=== PATIENT | male | born 1965 ===

== ENCOUNTER 2019-05-20 00:08 | Observation (INO) | payer MEDICARE ==
[2019-05-20 01:08] LABS: Basophils % (Auto) 0.3 % (0.0-1.8); Eosinophils # (Auto) 0.1 K/mm3 (0.0-0.4); Eosinophils % (Auto) 0.6 % (0.0-4.3); Hematocrit 38.1 % (35.5-45.6); Hemoglobin 12.6 gm/dl (11.8-15.2); Lymphocytes # (Auto) 1.3 K/mm3 (1.2-5.4); Lymphocytes % (Auto) 11.5 % (13.4-35.0); Mean Corpuscular HGB Conc 33 % (32-34); Mean Corpuscular Volume 93 fl (84-94); Monocytes # (Auto) 1.3 K/mm3 (0.0-0.8); Monocytes % (Auto) 12.2 % (0.0-7.3); Platelet Count 293 K/mm3 (140-440); Red Cell Distribution Width 14.1 % (13.2-15.2)
--- NOTE | 2019-05-20 01:22 | XRay Report ---
CHEST 1 VIEW INDICATION / CLINICAL INFORMATION: Altered mental status. COMPARISON: None available. FINDINGS: SUPPORT DEVICES: None. HEART / MEDIASTINUM: No significant abnormality. LUNGS / PLEURA: No significant pulmonary or pleural abnormality. No pneumothorax. ADDITIONAL FINDINGS: No significant additional findings. IMPRESSION: 1. No significant change Signer Name: Marcus Riggs MD Signed: 05/20/2019 1:18 AM Workstation Name: [facility] [id number]
[2019-05-20 01:35] LABS: INR 1.02 (0.87-1.13)
[2019-05-20 01:36] LABS: Partial Thromboplastin Time 37.4 Sec. (24.2-36.6)
[2019-05-20 01:48] LABS: Alanine Aminotransferase 21 units/L (7-56); Albumin 3.7 g/dL (3.9-5); BUN/Creatinine Ratio 22; Blood Urea Nitrogen 26 mg/dL (9-20); Calcium 8.5 mg/dL (8.4-10.2); Hemolysis Index 0
[2019-05-20 02:03] LABS: ABG Base Excess 3.7 mmol/L (-2.0-3.0); ABG Methemoglobin 0.7 % (0.0-1.5); ABG Oxygen Saturation 96.9 % (95.0-99.0); ABG PCO2 46.7 mm Hg; ABG PH 7.412 pH Units (7.350-7.450); ABG PO2 88.1 mm Hg (80.0-90.0)
--- NOTE | 2019-05-20 02:35 | Emergency Department Report ---
HPI <EUNICE LOPEZ - Last Filed: 05/20/19 03:35> - HPI HPI: 54-year-old male presents to the emergency department via EMS from his [facility] with multiple complaints. He complains of having a 1 day history of shortness of breath. He complains of nausea and vomiting with some coffee-ground emesis. Patient complains of body aches. However the patient is very sleepy and/or sedated and is a poor historian. He has a past medical history of hypertension, hyperlipidemia, previous CVA without residual deficits. He has a psychiatric history of bipolar disorder. It is unknown whether the patient took anything or received anything for his symptoms prior to arrival today. <JAYTHOMAS S - Last Filed: 05/20/19 18:02> - General Chief Complaint: GI Bleed Time Seen by Provider: 05/20/19 00:33 ED Past Medical Hx <EUNICE LOPEZ - Last Filed: 05/20/19 03:35> - Past Medical History Previous Medical History?: Yes Hx Hypertension: Yes Hx CVA: Yes (2018) Hx Diabetes: Yes Hx Psychiatric Treatment: Yes (bipolar, ADHD) Hx COPD: Yes - Surgical History Past Surgical History?: Yes Additional Surgical History: R shoulder sx - Social History Smoking Status: Current Every Day Smoker Substance Use Type: None <THOMAS THOMPSON - Last Filed: 05/20/19 18:02> - Medications Home Medications: Home Medications Medication Instructions Recorded Confirmed Last Taken Type AtorvaSTATin [Lipitor] 10 mg PO QHS 05/20/19 05/20/19 Unknown History Benztropine [Cogentin] 0.5 mg PO HS 05/20/19 05/20/[address] [Depakote Dr] 250 mg PO BID 05/20/19 05/20/19 05/18/19 History Docusate Sodium [Colace CAP] 100 mg PO BID PRN 05/20/19 05/20/19 Unknown History Losartan [Cozaar] 100 mg PO QDAY 05/20/19 05/20/19 Unknown History Pantoprazole [Protonix TAB] 40 mg PO BID #60 tablet 05/20/19 Unknown Rx amLODIPine 5 mg PO DAILY 05/20/19 05/20/19 Unknown History clonazePAM 0.5 mg PO BID 05/20/19 05/20/19 Unknown History hydroCHLOROthiazide [HCTZ] 25 mg PO QDAY 05/20/19 05/20/19 Unknown History polyethylene glycoL 3350 [Miralax 17 gm PO BID #30 powd.pack 05/20/19 Unknown Rx 3350] ED Review of Systems ROS: Stated complaint: VOMITING,SHOULDER PAIN Other details as noted in HPI <EUNICE LOPEZ - Last Filed: 05/20/19 03:35> ROS: Stated complaint: VOMITING,SHOULDER PAIN Other details as noted in HPI Comment: Unobtainable due to pts medical conditions Respiratory: cough, shortness of breath Cardiovascular: denies: chest pain, palpitations Gastrointestinal: nausea, vomiting, hematemesis <THOMAS THOMPSON S - Last Filed: 05/20/19 18:02> Physical Exam - Physical Exam Vital Signs: Vital Signs 05/20/19 05/20/19 05/20/19 00:33 01:00 02:00 Temperature 98.1 F Pulse Rate 94 H 91 H 93 H Respiratory 15 15 14 Rate Blood Pressure 141/81 137/90 Blood Pressure 152/79 [Left] O2 Sat by Pulse 100 98 89 Oximetry 05/20/19 03:00 Temperature Pulse Rate 93 H Respiratory 19 Rate Blood Pressure 152/98 Blood Pressure [Left] O2 Sat by Pulse 96 Oximetry <EUNICE LOPEZ - Last Filed: 05/20/19 03:35> - Physical Exam Vital Signs: Vital Signs 05/20/19 00:33 Temperature 98.1 F Pulse Rate 94 H Respiratory 15 Rate Blood Pressure 152/79 [Left] O2 Sat by Pulse 100 Oximetry Physical Exam: GENERAL: The patient is well-developed well-nourished. HENT: Normocephalic. Atraumatic. Patient has moist mucous membranes. EYES: Extraocular motions are intact. Pupils equal reactive to light bilaterally. NECK: Supple. Trachea is midline. CHEST/LUNGS: Clear to auscultation. There is no respiratory distress noted. HEART/CARDIOVASCULAR: Regular. There is no tachycardia. There is no murmur. ABDOMEN: Abdomen is soft, nontender. Patient has normal bowel sounds. There is no abdominal distention. SKIN: Skin is warm and dry. NEURO: The patient is very sleepy but is arousable. Once awake he will follow commands. However he will fall back asleep if not continuously stimulated. MUSCULOSKELETAL: There is no tenderness or deformity. There is no evidence of acute injury. <THOMAS THOMPSON S - Last Filed: 05/20/19 18:02> ED Course Vital Signs 05/20/19 05/20/19 05/20/19 00:33 01:00 02:00 Temperature 98.1 F Pulse Rate 94 H 91 H 93 H Respiratory 15 15 14 Rate Blood Pressure 141/81 137/90 Blood Pressure 152/79 [Left] O2 Sat by Pulse 100 98 89 Oximetry 05/20/19 03:00 Temperature Pulse Rate 93 H Respiratory 19 Rate Blood Pressure 152/98 Blood Pressure [Left] O2 Sat by Pulse 96 Oximetry - Reevaluation(s) Reevaluation #1: 05/20/19 03:40 CT scan of the brain negative for acute disease. CT scan of the chest negative for acute disease. On my rectal exam, escorted by nurse Emperatriz Fisher, the patient had brown stool with guaiac positive blood, although no bright red blood was noted. Chart is reviewed. Suspect multiple things going on, including disorganized behavior, psychosis, probable Trish-Ledbetter tear versus gastritis Given that patient is somnolent, difficult to arouse, disorganized, cannot care for himself independently, his questionable upper GI bleed is not safe to be managed as an outpatient. He will require consultation from hospital medicine, gastroenterology, and psychiatry. He is hemodynamically stable at this time, laboratory studies reviewed and appreciated, Protonix ordered, gastroenterology consult is ordered in the computer, however, the patient does not require emergent consultation from GI at 340 1 in the morning. He is hemodynamically and medically suitable to await GI consultation in the morning during regular business hours. Discussed case with hospital physician, Dr. Bettie Feldman who has accepted the patient to the medical service. <EUNICE LOPEZ - Last Filed: 05/20/19 03:35> Vital Signs 05/20/19 00:33 Temperature 98.1 F Pulse Rate 94 H Respiratory 15 Rate Blood Pressure 152/79 [Left] O2 Sat by Pulse 100 Oximetry <THOMAS THOMPSON S - Last Filed: 05/20/19 18:02> ED Medical Decision Making - Lab Data Result diagrams: 05/20/19 00:53 05/20/19 00:53 Vital Signs 05/20/19 05/20/19 05/20/19 00:33 01:00 02:00 Temperature 98.1 F Pulse Rate 94 H 91 H 93 H Respiratory 15 15 14 Rate Blood Pressure 141/81 137/90 Blood Pressure 152/79 [Left] O2 Sat by Pulse 100 98 89 Oximetry 05/20/19 03:00 Temperature Pulse Rate 93 H Respiratory 19 Rate Blood Pressure 152/98 Blood Pressure [Left] O2 Sat by Pulse 96 Oximetry Lab Results 05/20/19 05/20/19 05/20/19 Range/Units 00:52 00:53 00:53 WBC 11.0 (4.5-11.0) K/mm3 RBC 4.10 (3.65-5.03) M/mm3 Hgb 12.6 (11.8-15.2) gm/dl Hct 38.1 (35.5-45.6) % MCV 93 (84-94) fl MCH 31 (28-32) pg MCHC 33 (32-34) % RDW 14.1 (13.2-15.2) % Plt Count 293 (140-440) K/mm3 Lymph % (Auto) 11.5 L (13.4-35.0) % Gregory % (Auto) 12.2 H (0.0-7.3) % Eos % (Auto) 0.6 (0.0-4.3) % Baso % (Auto) 0.3 (0.0-1.8) % Lymph # 1.3 (1.2-5.4) K/mm3 Gregory # 1.3 H (0.0-0.8) K/mm3 Eos # 0.1 (0.0-0.4) K/mm3 Baso # 0.0 (0.0-0.1) K/mm3 Seg Neutrophils % 75.4 H (40.0-70.0) % Seg Neutrophils # 8.3 H (1.8-7.7) K/mm3 PT 13.5 (12.2-14.9) Sec. INR 1.02 (0.87-1.13) APTT 37.4 H (24.2-36.6) Sec. D-Dimer 379.05 H (0-234) ng/mlDDU ABG pH 7.412 (7.350-7.450) pH Units ABG pCO2 46.7 mm Hg ABG pO2 88.1 (80.0-90.0) mm Hg ABG HCO3 29.0 H (20.0-26.0) mmol/L ABG O2 Saturation 96.9 (95.0-99.0) % ABG O2 Content 16.9 (0.0-44) ABG Base Excess 3.7 H (-2.0-3.0) mmol/L ABG Hemoglobin 12.7 L (14.0-18.0) gm/dl ABG Carboxyhemoglobin 1.9 (0.0-5.0) % ABG Methemoglobin 0.7 (0.0-1.5) % Oxyhemoglobin 94.3 L (95.0-99.0) % FiO2 28 % Sodium (137-145) mmol/L Potassium (3.6-5.0) mmol/L Chloride (98-107) mmol/L Carbon Dioxide (22-30) mmol/L Anion Gap mmol/L BUN (9-20) mg/dL Creatinine (0.8-1.5) mg/dL Estimated GFR ml/min BUN/Creatinine Ratio % Glucose (75-100) mg/dL Calcium (8.4-10.2) mg/dL Magnesium (1.7-2.3) mg/dL Total Bilirubin (0.1-1.2) mg/dL AST (5-40) units/L ALT (7-56) units/L Alkaline Phosphatase (35-129) units/L Ammonia (25-60) umol/L Total Creatine Kinase (55-170) units/L Troponin T (0.00-0.029) ng/mL Total Protein (6.3-8.2) g/dL Albumin (3.9-5) g/dL Albumin/Globulin Ratio % TSH (0.270-4.200) mlU/mL Salicylates (2.8-20.0) mg/dL Acetaminophen (10.0-30.0) ug/mL Valproic Acid (50-100) ug/mL Plasma/Serum Alcohol (0-0.07) % 05/20/19 05/20/19 05/20/19 Range/Units 00:53 00:53 00:53 WBC (4.5-11.0) K/mm3 RBC (3.65-5.03) M/mm3 Hgb (11.8-15.2) gm/dl Hct (35.5-45.6) % MCV (84-94) fl MCH (28-32) pg MCHC (32-34) % RDW (13.2-15.2) % Plt Count (140-440) K/mm3 Lymph % (Auto) (13.4-35.0) % Gregory % (Auto) (0.0-7.3) % Eos % (Auto) (0.0-4.3) % Baso % (Auto) (0.0-1.8) % Lymph # (1.2-5.4) K/mm3 Gregory # (0.0-0.8) K/mm3 Eos # (0.0-0.4) K/mm3 Baso # (0.0-0.1) K/mm3 Seg Neutrophils % (40.0-70.0) % Seg Neutrophils # (1.8-7.7) K/mm3 PT (12.2-14.9) Sec. INR (0.87-1.13) APTT (24.2-36.6) Sec. D-Dimer (0-234) ng/mlDDU ABG pH (7.350-7.450) pH Units ABG pCO2 mm Hg ABG pO2 (80.0-90.0) mm Hg ABG HCO3 (20.0-26.0) mmol/L ABG O2 Saturation (95.0-99.0) % ABG O2 Content (0.0-44) ABG Base Excess (-2.0-3.0) mmol/L ABG Hemoglobin (14.0-18.0) gm/dl ABG Carboxyhemoglobin (0.0-5.0) % ABG Methemoglobin (0.0-1.5) % Oxyhemoglobin (95.0-99.0) % FiO2 % Sodium 140 (137-145) mmol/L Potassium 3.2 L (3.6-5.0) mmol/L Chloride 99.8 (98-107) mmol/L Carbon Dioxide 26 (22-30) mmol/L Anion Gap 17 mmol/L BUN 26 H (9-20) mg/dL Creatinine 1.2 (0.8-1.5) mg/dL Estimated GFR > 60 ml/min BUN/Creatinine Ratio 22 % Glucose 109 H (75-100) mg/dL Calcium 8.5 (8.4-10.2) mg/dL Magnesium (1.7-2.3) mg/dL Total Bilirubin 0.30 (0.1-1.2) mg/dL AST 32 (5-40) units/L ALT 21 (7-56) units/L Alkaline Phosphatase 77 (35-129) units/L Ammonia 49.0 (25-60) umol/L Total Creatine Kinase (55-170) units/L Troponin T 0.028 (0.00-0.029) ng/mL Total Protein 6.7 (6.3-8.2) g/dL Albumin 3.7 L (3.9-5) g/dL Albumin/Globulin Ratio 1.2 % TSH 1.030 (0.270-4.200) mlU/mL Salicylates (2.8-20.0) mg/dL Acetaminophen (10.0-30.0) ug/mL Valproic Acid (50-100) ug/mL Plasma/Serum Alcohol (0-0.07) % 05/20/19 05/20/19 05/20/19 Range/Units 00:53 00:53 00:53 WBC (4.5-11.0) K/mm3 RBC (3.65-5.03) M/mm3 Hgb (11.8-15.2) gm/dl Hct (35.5-45.6) % MCV (84-94) fl MCH (28-32) pg MCHC (32-34) % RDW (13.2-15.2) % Plt Count (140-440) K/mm3 Lymph % (Auto) (13.4-35.0) % Gregory % (Auto) (0.0-7.3) % Eos % (Auto) (0.0-4.3) % Baso % (Auto) (0.0-1.8) % Lymph # (1.2-5.4) K/mm3 Gregory # (0.0-0.8) K/mm3 Eos # (0.0-0.4) K/mm3 Baso # (0.0-0.1) K/mm3 Seg Neutrophils % (40.0-70.0) % Seg Neutrophils # (1.8-7.7) K/mm3 PT (12.2-14.9) Sec. INR (0.87-1.13) APTT (24.2-36.6) Sec. D-Dimer (0-234) ng/mlDDU ABG pH (7.350-7.450) pH Units ABG pCO2 mm Hg ABG pO2 (80.0-90.0) mm Hg ABG HCO3 (20.0-26.0) mmol/L ABG O2 Saturation (95.0-99.0) % ABG O2 Content (0.0-44) ABG Base Excess (-2.0-3.0) mmol/L ABG Hemoglobin (14.0-18.0) gm/dl ABG Carboxyhemoglobin (0.0-5.0) % ABG Methemoglobin (0.0-1.5) % Oxyhemoglobin (95.0-99.0) % FiO2 % Sodium (137-145) mmol/L Potassium (3.6-5.0) mmol/L Chloride (98-107) mmol/L Carbon Dioxide (22-30) mmol/L Anion Gap mmol/L BUN (9-20) mg/dL Creatinine (0.8-1.5) mg/dL Estimated GFR ml/min BUN/Creatinine Ratio % Glucose (75-100) mg/dL Calcium (8.4-10.2) mg/dL Magnesium 1.90 (1.7-2.3) mg/dL Total Bilirubin (0.1-1.2) mg/dL AST (5-40) units/L ALT (7-56) units/L Alkaline Phosphatase (35-129) units/L Ammonia (25-60) umol/L Total Creatine Kinase 131 (55-170) units/L Troponin T (0.00-0.029) ng/mL Total Protein (6.3-8.2) g/dL Albumin (3.9-5) g/dL Albumin/Globulin Ratio % TSH (0.270-4.200) mlU/mL Salicylates < 0.3 L (2.8-20.0) mg/dL Acetaminophen (10.0-30.0) ug/mL Valproic Acid 53.8 (50-100) ug/mL Plasma/Serum Alcohol < 0.01 (0-0.07) % 05/20/19 Range/Units 00:53 WBC (4.5-11.0) K/mm3 RBC (3.65-5.03) M/mm3 Hgb (11.8-15.2) gm/dl Hct (35.5-45.6) % MCV (84-94) fl MCH (28-32) pg MCHC (32-34) % RDW (13.2-15.2) % Plt Count (140-440) K/mm3 Lymph % (Auto) (13.4-35.0) % Gregory % (Auto) (0.0-7.3) % Eos % (Auto) (0.0-4.3) % Baso % (Auto) (0.0-1.8) % Lymph # (1.2-5.4) K/mm3 Gregory # (0.0-0.8) K/mm3 Eos # (0.0-0.4) K/mm3 Baso # (0.0-0.1) K/mm3 Seg Neutrophils % (40.0-70.0) % Seg Neutrophils # (1.8-7.7) K/mm3 PT (12.2-14.9) Sec. INR (0.87-1.13) APTT (24.2-36.6) Sec. D-Dimer (0-234) ng/mlDDU ABG pH (7.350-7.450) pH Units ABG pCO2 mm Hg ABG pO2 (80.0-90.0) mm Hg ABG HCO3 (20.0-26.0) mmol/L ABG O2 Saturation (95.0-99.0) % ABG O2 Content (0.0-44) ABG Base Excess (-2.0-3.0) mmol/L ABG Hemoglobin (14.0-18.0) gm/dl ABG Carboxyhemoglobin (0.0-5.0) % ABG Methemoglobin (0.0-1.5) % Oxyhemoglobin (95.0-99.0) % FiO2 % Sodium (137-145) mmol/L Potassium (3.6-5.0) mmol/L Chloride (98-107) mmol/L Carbon Dioxide (22-30) mmol/L Anion Gap mmol/L BUN (9-20) mg/dL Creatinine (0.8-1.5) mg/dL Estimated GFR ml/min BUN/Creatinine Ratio % Glucose (75-100) mg/dL Calcium (8.4-10.2) mg/dL Magnesium (1.7-2.3) mg/dL Total Bilirubin (0.1-1.2) mg/dL AST (5-40) units/L ALT (7-56) units/L Alkaline Phosphatase (35-129) units/L Ammonia (25-60) umol/L Total Creatine Kinase (55-170) units/L Troponin T (0.00-0.029) ng/mL Total Protein (6.3-8.2) g/dL Albumin (3.9-5) g/dL Albumin/Globulin Ratio % TSH (0.270-4.200) mlU/mL Salicylates (2.8-20.0) mg/dL Acetaminophen < 5.0 L (10.0-30.0) ug/mL Valproic Acid (50-100) ug/mL Plasma/Serum Alcohol (0-0.07) % - Radiology Data Radiology results: report reviewed, image reviewed Print Report Referring Physician: THOMAS THOMPSON Patient Name: JANICE KHAN Date of : 1965 Sex: Male Report Date: 2019-05-20 Report Status: Finalized Findings [facility] [address] [place] [address] Cat Scan Report Signed Patient: BILL CAMACHO MR#: [id number] : 1965 Acct:[id number] Age/Sex: 54 / M ADM Date: 05/20/19 Loc: ED Attending Dr: Ordering Physician: THOMAS THOMPSON DO Date of Service: 05/20/19 Procedure(s): CT head/brain wo con Accession Number(s): [id number] cc: THOMAS THOMPSON DO Head CT without intravenous contrast INDICATION: Altered mental status COMPARISON: None FINDINGS: The ventricles are normal in size and position. No hemorrhage or extra-axial fluid collection. No edema or mass effect. There are moderate atrophic changes with periventricular microangiopathic ischemic change and multiple small lacunar infarcts in the basal ganglia and periventricular white matter as well as in the brainstem. Portions of the sinuses visualized are clear. No skull fracture identified. IMPRESSION: No definite acute abnormality s een. Automated exposure control was utilized to diminish radiation dose Signer Name: Marcus Riggs MD Signed: 05/20/2019 3:06 AM Workstation Name: [id number] Transcribed By: ABDI Dictated By: Marcus Riggs MD Electronically Authenticated By: Marcus Riggs MD Signed Date/Time: 05/20/19 0306 Print Report Referring Physician: THOMAS THOMPSON Patient Name: JANICE KHAN Date of : 1965 Sex: Male Report Date: 2019-05-20 Report Status: Finalized Findings [facility] [address] [place] [address] Cat Scan Report Signed Patient: JANICE KHAN MR#: [id number] : 1965 Acct:[id number] Age/Sex: 54 / M ADM Date: 05/20/19 Loc: ED Attending Dr: Ordering Physician: THOMAS THOMPSON DO Date of Service: 05/20/19 Procedure(s): CT angio chest Accession Number(s): [id number] cc: THOMAS THOMPSON DO CT angiography of the chest with 2-D reconstructions INDICATION: Shortness of breath and elevated d-dime Thin section axial images were obtained as well as 2-D reformatted MIP images in all 3 planes FINDINGS: There is no hilar or mediastinal adenopathy. No pleural or pericardial effusion. Lung windows show no nodules, masses or infiltrates. There is no thoracic aortic aneurysm or dissection present. Routine axial images as well as 2-D reconstructions through the pulmonary arteries show no evidence of emboli. There is slight dependent atelectasis. IMPRESSION: Negative chest CTA Automated exposure control was utilized to diminish radiation dose. Signer Name: Marcus Riggs MD Signed: 05/20/2019 3:16 AM Workstation Name: [id number] Transcribed By: ABDI Dictated By: Marcus Riggs MD Electronically Authenticated By: Marcus Riggs MD Signed Date/Time: 05/20/19315 DD/ 1 <EUNICE LOPEZ - Last Filed: 05/20/19 03:35> - Lab Data Result diagrams: 05/20/19 08:20 05/20/19 08:20 - EKG Data -: EKG Interpreted by Me EKG shows normal: sinus rhythm, axis, intervals, QRS complexes (LVH), ST-T waves Rate: normal - EKG Data When compared to previous EKG there are: previous EKG unavailable Interpretation: LVH - Medical Decision Making This patient presents to the emergency department with multiple different comp laints. He complains of dyspnea, nausea and vomiting with coffee-ground hematemesis, body aches. On examination the patient is altered versus sedated versus intoxicated. He is arousable but will go right back to sleep if he is not continuously stimulated. An ABG was done that did not show any hypercapnia or any acid-base disturbances. Labs have been thus far mostly unremarkable except for some mild hypokalemia, slightly elevated but equivocal troponin level and a slightly elevated d-dimer. The patient is currently getting a CT scan of the head without contrast, as well as a CT angiography of the chest. We still need a urine sample for urinalysis and urine drug screen. The patient's CT results will be followed by my colleague, Dr Lopez, who will otherwise assist with disposition. <THOMAS THOMPSON S - Last Filed: 05/20/19 18:02> Critical care attestation.: If time is entered above; I have spent that time in minutes in the direct care of this critically ill patient, excluding procedure time. <EUNICE LOPEZ - Last Filed: 05/20/19 03:35> Critical Care Time: No Critical care attestation.: If time is entered above; I have spent that time in minutes in the direct care of this critically ill patient, excluding procedure time. <THOMAS THOMPSON - Last Filed: 05/20/19 18:02> ED Disposition Is pt being admited?: Yes <EUNICE LOPEZ - Last Filed: 05/20/19 03:35> Is pt being admited?: Yes Time of Disposition: 02:46 <THOMAS THOMPSON S - Last Filed: 05/20/19 18:02> Clinical Impression: Hypokalemia Altered mental status Qualifiers: Altered mental status type: unspecified Qualified Code(s): R41.82 - Altered mental status, unspecified Hypertension Qualifiers: Hypertension type: essential hypertension Qualified Code(s): I10 - Essential (primary) hypertension Disposition: DC-09 OP ADMIT IP TO THIS HOSP Condition: Fair
[2019-05-20] MEDS ORDERED: PANTOPRAZOLE 40 MG INJ IV ONE (02:51)
--- NOTE | 2019-05-20 03:10 | Cat Scan Report ---
Head CT without intravenous contrast INDICATION: Altered mental status COMPARISON: None FINDINGS: The ventricles are normal in size and position. No hemorrhage or extra-axial fluid collecti on. No edema or mass effect. There are moderate atrophic changes with periventricular microangiopathi c ischemic change and multiple small lacunar infarcts in the basal ganglia and periventricular white matter as well as in the brainstem. Portions of the sinuses visualized are clear. No skull fracture i dentified. IMPRESSION: No definite acute abnormality seen. Automated exposure control was utilized to diminish radiation dose Signer Name: Marcus Riggs MD Signed: 05/20/2019 3:06 AM Workstation Name: [id number]
--- NOTE | 2019-05-20 03:21 | Cat Scan Report ---
CT angiography of the chest with 2-D reconstructions INDICATION: Shortness of breath and elevated d-dime Thin section axial images were obtained as well as 2-D reformatted MIP images in all 3 planes FINDINGS: There is no hilar or mediastinal adenopathy. No pleural or pericardial effusion. Lung windo ws show no nodules, masses or infiltrates. There is no thoracic aortic aneurysm or dissection present . Routine axial images as well as 2-D reconstructions through the pulmonary arteries show no evidence of emboli. There is slight dependent atelectasis. IMPRESSION: Negative chest CTA Automated exposure control was utilized to diminish radiation dose. Signer Name: Marcus Riggs MD Signed: 05/20/2019 3:16 AM Workstation Name: [id number]
[2019-05-20] MEDS: POTASSIUM CHLORIDE 10 MEQ 10 MEQ/100 ML BAG IV SCH ×4 (03:23→06:21)
[2019-05-20] MEDS ORDERED: SODIUM CHLORIDE 0.9% 500 ML 500 ML IV ONE (03:34)
[2019-05-20] MEDS ORDERED: SODIUM CHLORIDE 0.9% 1000 ML 1,000 ML ONE (03:35)
[2019-05-20 03:39] LABS: Amphetamine Screen,Urine PRESUMPTIVE NEGATIVE; Benzodiazepines Screen,Urine PRESUMPTIVE NEGATIVE; Cannabinoid Screen,Urine PRESUMPTIVE NEGATIVE; Cocaine Screen,Urine PRESUMPTIVE NEGATIVE; Methadone Screen,Urine PRESUMPTIVE NEGATIVE; Opiate Screen,Urine PRESUMPTIVE NEGATIVE
[2019-05-20 03:40] LABS: Bilirubin,Urine NEG (Negative); Blood,Urine NEG (Negative); Color,Urine Yellow (Yellow); Mucus,Urine FEW /HPF; Urobilinogen,Urine < 2.0 mg/dL (<2.0)
[2019-05-20] MEDS ORDERED: oxyCODONE /ACETAMINOPHEN 5-325MG TAB PO PRN (06:49)
[2019-05-20] MEDS ORDERED: ACETAMINOPHEN 325 MG TAB PO PRN (06:49)
[2019-05-20] MEDS ORDERED: ALBUTEROL 2.5 MG/3 ML NEBU IH PRN (06:49)
[2019-05-20] MEDS ORDERED: ONDANSETRON 4 MG/2 ML INJ IV PRN (06:49)
[2019-05-20] MEDS ORDERED: SODIUM CHLORIDE 0.45% 1000 ML 1,000 ML IV SCH (07:00)
--- NOTE | 2019-05-20 07:07 | History and Physical Report ---
History of Present Illness Date of examination: 05/20/19 Chief complaint: Nausea and Vomiting at [facility] History of present illness: 54M with PMH fo HTN, Dyslipidemia, CVA in 2018, Bipolar disorder who was sent here from [facility] for N/V and some coffee ground emesis as per [facility] where the pt resides. When the pt arrived in the ED, he was mostly silent and denied any pain anywhere. He was noted to be disorganized. He was sent for a head CT which was negative. CT chest also was negative for PE. UDS was negative but of note, pt is on Xanax. He later became lucid enough to speak. In my conversations, I asked him about his abdominal distention and asked when his last BM was. He says his last BM was 05/16/19. He says " I have been constipated all of my life" and thats why I stopped eating". Pt was sent from [facility] to [facility] for Mood Stabilization on 05/14/19. He was noted to be agitated and wont follow command, and appeared anxious. HE is under chapter 1014 at [facility]. Thus far in the ED, No N/V has occured and pt's Guaiac was negative as performed by the ED physician. Past History Past Medical History: hypertension, stroke, other (bipolar disorder) Social history: full code, other (occasional cannabis use). denies: IV drug use Family history: hypertension Medications and Allergies Allergies Allergy/AdvReac Type Severity Reaction Status Date / Time chlorpromazine Allergy Unknown Verified 05/20/19 02:52 [From Thorazine] Home Medications Medication Instructions Recorded Confirmed Last Taken Type AtorvaSTATin [Lipitor] 10 mg PO QHS 05/20/19 05/20/19 Unknown History Benztropine [Cogentin] 0.5 mg PO HS 05/20/19 05/20/19 Unknown History Divalproex [DepaKOTE DR] 500 mg PO BID 05/20/19 05/20/19 Unknown History Docusate Sodium [Colace] 100 mg PO BID PRN 05/20/19 05/20/19 Unknown History Losartan [Cozaar] 100 mg PO QDAY 05/20/19 05/20/19 Unknown History amLODIPine [Norvasc] 5 mg PO DAILY 05/20/19 05/20/19 Unknown History clonazePAM 0.5 mg PO BID 05/20/19 05/20/19 Unknown History hydroCHLOROthiazide [HCTZ] 25 mg PO QDAY 05/20/19 05/20/19 Unknown History Active Meds: Active Medications Acetaminophen (Tylenol) 650 mg PO Q4H PRN PRN Reason: Pain MILD(1-3)/Fever >100.5/BRYANT Albuterol (Proventil) 2.5 mg IH Q4HRT PRN PRN Reason: Shortness Of Breath Bisacodyl (Dulcolax) 10 mg WV ONCE ONE Stop: 05/20/19 06:50 Sodium Chloride (Nacl 0.45% 1000 Ml) 1,000 mls @ 125 mls/hr IV DIRECT JONATHAN Stop: 05/21/19 14:59 Ondansetron HCl (Zofran) 4 mg IV Q8H PRN PRN Reason: Nausea And Vomiting Oxycodone/Acetaminophen (Percocet 5/325) 1 tab PO Q6H PRN PRN Reason: Pain, Moderate (4-6) Polyethylene Glycol (Miralax 3350) 17 gm PO BID JONATHAN Sodium Chloride (Sodium Chloride Flush Syringe 10 Ml) 10 ml IV BID JONATHAN Sodium Chloride (Sodium Chloride Flush Syringe 10 Ml) 10 ml IV PRN PRN PRN Reason: LINE FLUSH Exam - Constitutional Vitals: Temp Pulse Resp BP Pulse Ox 98.2 F 84 16 136/79 100 05/20/19 06:25 05/20/19 06:25 05/20/19 06:25 05/20/19 06:25 05/20/19 06:25 General appearance: Present: no acute distress, well-nourished - EENT Eyes: Present: PERRL ENT: hearing intact, clear oral mucosa - Neck Neck: Present: supple, normal ROM - Respiratory Respiratory effort: normal Respiratory: bilateral: CTA - Cardiovascular Heart Sounds: Present: S1 & S2. Absent: rub, click - Extremities Extremities: pulses symmetrical, No edema Extremity abnormal: edema Peripheral Pulses: within normal limits - Abdominal General gastrointestinal: Present: distended, hypoactive bowel sounds Male genitourinary: Present: normal - Integumentary Integumentary: Present: clear, warm, dry - Musculoskeletal Musculoskeletal: gait normal, strength equal bilaterally - Psychiatric Psychiatric: appropriate mood/affect, intact judgment & insight - Neurologic Neurologic: CNII-XII intact, moves all extremities Results - Labs CBC & Chem 7: 05/20/19 00:53 05/20/19 00:53 Labs: Laboratory Last Values WBC 11.0 K/mm3 (4.5-11.0) 05/20/19 00:53 RBC 4.10 M/mm3 (3.65-5.03) 05/20/19 00:53 Hgb 12.6 gm/dl (11.8-15.2) 05/20/19 00:53 Hct 38.1 % (35.5-45.6) 05/20/19 00:53 MCV 93 fl (84-94) 05/20/19 00:53 MCH 31 pg (28-32) 05/20/19 00:53 MCHC 33 % (32-34) 05/20/19 00:53 RDW 14.1 % (13.2-15.2) 05/20/19 00:53 Plt Count 293 K/mm3 (140-440) 05/20/19 00:53 Lymph % (Auto) 11.5 % (13.4-35.0) L 05/20/19 00:53 [place] % (Auto) 12.2 % (0.0-7.3) H 05/20/19 00:53 Eos % (Auto) 0.6 % (0.0-4.3) 05/20/19 00:53 Baso % (Auto) 0.3 % (0.0-1.8) 05/20/19 00:53 Lymph # 1.3 K/mm3 (1.2-5.4) 05/20/19 00:53 [place]by # 1.3 K/mm3 (0.0-0.8) H 05/20/19 00:53 Eos # 0.1 K/mm3 (0.0-0.4) 05/20/19 00:53 Baso # 0.0 K/mm3 (0.0-0.1) 05/20/19 00:53 Seg Neutrophils % 75.4 % (40.0-70.0) H 05/20/19 00:53 Seg Neutrophils # 8.3 K/mm3 (1.8-7.7) H 05/20/19 00:53 PT 13.5 Sec. (12.2-14.9) 05/20/19 00:53 INR 1.02 (0.87-1.13) 05/20/19 00:53 APTT 37.4 Sec. (24.2-36.6) H 05/20/19 00:53 D-Dimer 379.05 ng/mlDDU (0-234) H 05/20/19 00:53 ABG pH 7.412 pH Units (7.350-7.450) 05/20/19 00:52 ABG pCO2 46.7 mm Hg 05/20/19 00:52 ABG pO2 88.1 mm Hg (80.0-90.0) 05/20/19 00:52 ABG HCO3 29.0 mmol/L (20.0-26.0) H 05/20/19 00:52 ABG O2 Saturation 96.9 % (95.0-99.0) 05/20/19 00:52 ABG O2 Content 16.9 (0.0-44) 05/20/19 00:52 ABG Base Excess 3.7 mmol/L (-2.0-3.0) H 05/20/19 00:52 ABG Hemoglobin 12.7 gm/dl (14.0-18.0) L 05/20/19 00:52 ABG Carboxyhemoglobin 1.9 % (0.0-5.0) 05/20/19 00:52 ABG Methemoglobin 0.7 % (0.0-1.5) 05/20/19 00:52 Oxyhemoglobin 94.3 % (95.0-99.0) L 05/20/19 00:52 FiO2 28 % 05/20/19 00:52 Sodium 140 mmol/L (137-145) 05/20/19 00:53 Potassium 3.2 mmol/L (3.6-5.0) L 05/20/19 00:53 Chloride 99.8 mmol/L (98-107) 05/20/19 00:53 Carbon Dioxide 26 mmol/L (22-30) 05/20/19 00:53 Anion Gap 17 mmol/L 05/20/19 00:53 BUN 26 mg/dL (9-20) H 05/20/19 00:53 Creatinine 1.2 mg/dL (0.8-1.5) 05/20/19 00:53 Estimated GFR > 60 ml/min 05/20/19 00:53 BUN/Creatinine Ratio 22 % 05/20/19 00:53 Glucose 109 mg/dL (75-100) H 05/20/19 00:53 Calcium 8.5 mg/dL (8.4-10.2) 05/20/19 00:53 Magnesium 1.90 mg/dL (1.7-2.3) 05/20/19 00:53 Total Bilirubin 0.30 mg/dL (0.1-1.2) 05/20/19 00:53 AST 32 units/L (5-40) 05/20/19 00:53 ALT 21 units/L (7-56) 05/20/19 00:53 Alkaline Phosphatase 77 units/L (35-129) 05/20/19 00:53 Ammonia 49.0 umol/L (25-60) 05/20/19 00:53 Total Creatine Kinase 131 units/L (55-170) 05/20/19 00:53 Troponin T 0.028 ng/mL (0.00-0.029) 05/20/19 00:53 Total Protein 6.7 g/dL (6.3-8.2) 05/20/19 00:53 Albumin 3.7 g/dL (3.9-5) L 05/20/19 00:53 Albumin/Globulin Ratio 1.2 % 05/20/19 00:53 TSH 1.030 mlU/mL (0.270-4.200) 05/20/19 00:53 Urine Color Yellow (Yellow) 05/20/19 03:05 Urine Turbidity Clear (Clear) 05/20/19 03:05 Urine pH 5.0 (5.0-7.0) 05/20/19 03:05 Ur Specific [place] 1.034 (1.003-1.030) H 05/20/19 03:05 Urine Protein 30 mg/dl mg/dL (Negative) 05/20/19 03:05 Urine Glucose (UA) Neg mg/dL (Negative) 05/20/19 03:05 Urine Ketones Neg mg/dL (Negative) 05/20/19 03:05 Urine Blood Neg (Negative) 05/20/19 03:05 Urine Nitrite Neg (Negative) 05/20/19 03:05 Urine Bilirubin Neg (Negative) 05/20/19 03:05 Urine Urobilinogen < 2.0 mg/dL (<2.0) 05/20/19 03:05 Ur Leukocyte Esterase Neg (Negative) 05/20/19 03:05 Urine WBC (Auto) 1.0 /HPF (0.0-6.0) 05/20/19 03:05 Urine RBC (Auto) 2.0 /HPF (0.0-6.0) 05/20/19 03:05 U Epithel Cells (Auto) < 1.0 /HPF (0-13.0) 05/20/19 03:05 Urine Mucus Few /HPF 05/20/19 03:05 Salicylates < 0.3 mg/dL (2.8-20.0) L 05/20/19 00:53 Urine Opiates Screen Presumptive negative 05/20/19 03:05 Urine Methadone Screen Presumptive negative 05/20/19 03:05 Acetaminophen < 5.0 ug/mL (10.0-30.0) L 05/20/19 00:53 Ur Barbiturates Screen Presumptive negative 05/20/19 03:05 Valproic Acid 53.8 ug/mL (50-100) 05/20/19 00:53 Ur Phencyclidine Scrn Presumptive negative 05/20/19 03:05 Ur Amphetamines Screen Presumptive negative 05/20/19 03:05 U Benzodiazepines Scrn Presumptive negative 05/20/19 03:05 Urine Cocaine Screen Presumptive negative 05/20/19 03:05 U Marijuana (THC) Screen Presumptive negative 05/20/19 03:05 Drugs of Abuse Note Disclamer 05/20/19 03:05 Plasma/Serum Alcohol < 0.01 % (0-0.07) 05/20/19 00:53 Assessment and Plan Assessment and plan: Nausea and VOmiting - likely due to constipation/ileus. Abdominal distention is noted - will send a KUB now - Bisacodyl WV and PO miralax. PO lactulose as indicated -Reglan IV as prokinetic and to combat nausea - No signs of active Gi bleeding. stable H/H. Guaic negative. Constipation - with abd distention - monitor - full liquids for now Bipolar Disorder - with labile sensorium - Continue Depakote. Level is WNL Hypokalemia - due to N/V - repleted -check mag Tobacco Dependence - Pt counseled about cessation Dehydration - Moderate - IVF full code. VTE prophylaxis?: Mechanical Plan of care discussed with patient/family: No
[2019-05-20] MEDS ORDERED: DOCUSATE SODIUM 100 MG CAP PO PRN (07:31)
--- NOTE | 2019-05-20 08:13 | XRay Report ---
ABDOMEN 1 VIEW(S) INDICATION / CLINICAL INFORMATION: abdominal distention, N/V Rule out ileus/constipa. COMPARISON: None available. FINDINGS: TUBES / LINES: None. BOWEL GAS PATTERN: There is a mild degree of gas throughout the small bowel loops and colon. No dilat ed bowel is detected. There is residual IV contrast agent in the renal collecting systems and bladder . FREE AIR / EXTRALUMINAL GAS: None seen. ADDITIONAL FINDINGS: No significant additional findings. IMPRESSION: No acute process. Findings may represent a mild diffuse ileus. Signer Name: Tristan Ross Jr, MD Signed: 05/20/2019 8:09 AM Workstation Name: [id number]
[2019-05-20 09:18] LABS: BUN/Creatinine Ratio 20; Blood Urea Nitrogen 24 mg/dL (9-20); Calcium 8.1 mg/dL (8.4-10.2); Hemolysis Index 2
[2019-05-20 09:24] LABS: Hematocrit 37.4 % (35.5-45.6); Hemoglobin 12.2 gm/dl (11.8-15.2); Mean Corpuscular HGB Conc 33 % (32-34); Mean Corpuscular Volume 93 fl (84-94); Platelet Count 280 K/mm3 (140-440); Red Blood Count 4.02 M/mm3 (3.65-5.03); Red Cell Distribution Width 14.2 % (13.2-15.2)
[2019-05-20] MEDS ORDERED: LOSARTAN 50 MG TAB PO SCH (10:00)
[2019-05-20] MEDS ORDERED: clonazePAM 0.5 MG TAB PO SCH (10:00)
[2019-05-20] MEDS ORDERED: NON-FORMULARY EACH (Losartan [Cozaar] 100 MG) PO SCH (10:00)
[2019-05-20] MEDS ORDERED: amLODIPine 5 MG TAB PO SCH (10:00)
[2019-05-20] MEDS ORDERED: DIVALPROEX DR 500 MG TAB PO SCH (10:00)
[2019-05-20 10:24] LABS: Eosinophils % (Manual) 0 % (0.0-4.3); Total Cells Counted 100
[2019-05-20 10:25] LABS: Platelet Estimate Consistent w Auto; RBC Morphology Normal
--- NOTE | 2019-05-20 10:40 | Gastroenterology Consultation ---
History of Present Illness - Reason for Consult Consult date: 05/20/19 coffee-ground emesis Requesting physician: EUNICE RODRIGUEZ - History of Present Illness Patient is a 54 y/o male with PMH of HTN, CVA, HLD, DM, COPD, Bipolar/ADHD, and tobacco dependence who was brought to ED from [facility] with multiple complaints to include N/V with coffee ground emesis to which GI has been consulted. Head CT and chest CTA negative upon admission. This morning patient was resting in bed w/o acute distress. Noted to be somnolent but oriented. He reports acute on chronic constipation over the past few days to which he associates his N/V (now improved). States he had multiple episodes of vomiting with non-bloody emesis prior to emesis becoming black in color yesterday x 3 episodes. No further vomiting or signs of bleeding this am. Denies wt loss, abd pain, hematemesis, melena, diarrhea, or hematochezia. BM x 1 this am with light brown stool in diaper upon exam. Takes daily ASA but no hx of PUD, liver disease, or prior EGD. Patient is previously known to our service and followed by Dr. Wilson. He has a hx of hemorrhoids requiring banding 10/2018. Last colonoscopy on 11/29/2018 that showed cecal polyp, diverticulosis in sigmoid, non-bleeding internal hemorrhoids, and erythema in the recto-sigmoid with bx negative. Past History Past Medical History: other (See HPI) Past Surgical History: Other (right shoulder, colonoscopy 11/2018) Social history: smoking, full code, other (occasional cannabis use). denies: IV drug use Family history: hypertension Medications and Allergies Allergies Allergy/AdvReac Type Severity Reaction Status Date / Time chlorpromazine Allergy Unknown Verified 05/20/19 02:52 [From Thorazine] Home Medications Medication Instructions Recorded Confirmed Last Taken Type AtorvaSTATin [Lipitor] 10 mg PO QHS 05/20/19 05/20/19 Unknown History Benztropine [Cogentin] 0.5 mg PO HS 05/20/19 05/20/[address] [DepaKOTE DR] 500 mg PO BID 05/20/19 05/20/19 Unknown History Docusate Sodium [Colace] 100 mg PO BID PRN 05/20/19 05/20/19 Unknown History Losartan [Cozaar] 100 mg PO QDAY 05/20/19 05/20/19 Unknown History amLODIPine [Norvasc] 5 mg PO DAILY 05/20/19 05/20/19 Unknown History clonazePAM 0.5 mg PO BID 05/20/19 05/20/19 Unknown History hydroCHLOROthiazide [HCTZ] 25 mg PO QDAY 05/20/19 05/20/19 Unknown History Active Meds: Active Medications Acetaminophen (Tylenol) 650 mg PO Q4H PRN PRN Reason: Pain MILD(1-3)/Fever >100.5/BRYANT Albuterol (Proventil) 2.5 mg IH Q4HRT PRN PRN Reason: Shortness Of Breath Amlodipine Besylate (Amlodipine) 5 mg PO DAILY JONATHAN Atorvastatin Calcium (Atorvastatin) 10 mg PO QHS JONATHAN Benztropine Mesylate (Cogentin) 0.5 mg PO HS JONATHAN Clonazepam (Klonopin) 0.5 mg PO BID JONATHAN Divalproex Sodium (Depakote Dr) 500 mg PO BID JONATHAN Docusate Sodium (Colace) 100 mg PO BID PRN PRN Reason: Constipation Sodium Chloride (Nacl 0.45% 1000 Ml) 1,000 mls @ 125 mls/hr IV DIRECT JONATHAN Stop: 05/21/19 14:59 Losartan Potassium (Cozaar) 100 mg PO QDAY JONATHAN Metoclopramide HCl (Reglan) 10 mg IV Q4H JONATHAN Stop: 05/20/19 12:01 Ondansetron HCl (Zofran) 4 mg IV Q8H PRN PRN Reason: Nausea And Vomiting Oxycodone/Acetaminophen (Percocet 5/325) 1 tab PO Q6H PRN PRN Reason: Pain, Moderate (4-6) Polyethylene Glycol (Miralax 3350) 17 gm PO BID JONATHAN Sodium Chloride (Sodium Chloride Flush Syringe 10 Ml) 10 ml IV BID JONATHAN Sodium Chloride (Sodium Chloride Flush Syringe 10 Ml) 10 ml IV PRN PRN PRN Reason: LINE FLUSH medications reviewed/updated as required Review of Systems - Review of Systems All systems: negative Gastrointestinal: nausea, vomiting, constipation, coffee ground emesis Exam - Constitutional Vital Signs: Temp Pulse Resp BP Pulse Ox 97.6 F 87 17 139/88 98 05/20/19 07:15 05/20/19 07:15 05/20/19 07:15 05/20/19 07:15 05/20/19 07:15 General appearance: no acute distress, obese - EENT Eyes: PERRL, EOM intact ENT: hearing intact - Respiratory Respiratory effort: normal Respiratory: bilateral: diminished - Cardiovascular Rhythm: regular - Gastrointestinal General gastrointestinal: Present: soft, non-tender, non-distended, normal bowel sounds Rectal Exam: other (light brown stool noted in diaper upon exam) - Integumentary Integumentary: Present: warm - Neurologic Neurological: alert and oriented x3 - Labs CBC & Chem 7: 05/20/19 08:20 05/20/19 08:20 Lab Results: Laboratory Results - last 24 hr 05/20/19 05/20/19 05/20/19 00:52 00:53 00:53 WBC 11.0 RBC 4.10 Hgb 12.6 Hct 38.1 MCV 93 MCH 31 MCHC 33 RDW 14.1 Plt Count 293 Lymph % (Auto) 11.5 L [place] % (Auto) 12.2 H Eos % (Auto) 0.6 Baso % (Auto) 0.3 Lymph # 1.3 [place] # 1.3 H Eos # 0.1 Baso # 0.0 Add Manual Diff Total Counted Seg Neutrophils % 75.4 H Seg Neuts % (Manual) Band Neutrophils % Lymphocytes % (Manual) Reactive Lymphs % (Man) Monocytes % (Manual) Eosinophils % (Manual) Basophils % (Manual) Metamyelocytes % Myelocytes % Promyelocytes % Blast Cells % Nucleated RBC % Seg Neutrophils # 8.3 H Seg Neutrophils # Man Band Neutrophils # Lymphocytes # (Manual) Abs React Lymphs (Man) Monocytes # (Manual) Eosinophils # (Manual) Basophils # (Manual) Metamyelocytes # Myelocytes # Promyelocytes # Blast Cells # WBC Morphology Hypersegmented Neuts Hyposegmented Neuts Hypogranular Neuts Smudge Cells Toxic Granulation Toxic Vacuolation Dohle Bodies Pelger-Huet Anomaly Abel Rods Platelet Estimate Clumped Platelets Plt Clumps, EDTA Large Platelets Giant Platelets Platelet Satelliting Plt Morphology Comment RBC Morphology Dimorphic RBCs Polychromasia Hypochromasia Poikilocytosis Anisocytosis Microcytosis Macrocytosis Spherocytes Pappenheimer Bodies Sickle Cells Target Cells Tear Drop Cells Ovalocytes Helmet Cells [place] Bodies Uvalda Rings Bernabe Cells Bite Cells Crenated Cell Elliptocytes Acanthocytes (Spur) Rouleaux Hemoglobin C Crystals Schistocytes Malaria parasites Edd Bodies Hem Pathologist Commnt PT 13.5 INR 1.02 APTT 37.4 H D-Dimer 379.05 H ABG pH 7.412 ABG pCO2 46.7 ABG pO2 88.1 ABG HCO3 29.0 H ABG O2 Saturation 96.9 ABG O2 Content 16.9 ABG Base Excess 3.7 H ABG Hemoglobin 12.7 L ABG Carboxyhemoglobin 1.9 ABG Methemoglobin 0.7 Oxyhemoglobin 94.3 L FiO2 28 Sodium Potassium Chloride Carbon Dioxide Anion Gap BUN Creatinine Estimated GFR BUN/Creatinine Ratio Glucose Calcium Magnesium Total Bilirubin AST ALT Alkaline Phosphatase Ammonia Total Creatine Kinase Troponin T Total Protein Albumin Albumin/Globulin Ratio TSH Urine Color Urine Turbidity Urine pH Ur Specific [place] Urine Protein Urine Glucose (UA) Urine Ketones Urine Blood Urine Nitrite Urine Bilirubin Urine Urobilinogen Ur Leukocyte Esterase Urine WBC (Auto) Urine RBC (Auto) U Epithel Cells (Auto) Urine Mucus Salicylates Urine Opiates Screen Urine Methadone Screen Acetaminophen Ur Barbiturates Screen Valproic Acid Ur Phencyclidine Scrn Ur Amphetamines Screen U Benzodiazepines Scrn Urine Cocaine Screen U Marijuana (THC) Screen Drugs of Abuse Note Plasma/Serum Alcohol 05/20/19 05/20/19 05/20/19 00:53 00:53 00:53 WBC RBC Hgb Hct MCV MCH MCHC RDW Plt Count Lymph % (Auto) [place] % (Auto) Eos % (Auto) Baso % (Auto) Lymph # [place] # Eos # Baso # Add Manual Diff Total Counted Seg Neutrophils % Seg Neuts % (Manual) Band Neutrophils % Lymphocytes % (Manual) Reactive Lymphs % (Man) Monocytes % (Manual) Eosinophils % (Manual) Basophils % (Manual) Metamyelocytes % Myelocytes % Promyelocytes % Blast Cells % Nucleated RBC % Seg Neutrophils # Seg Neutrophils # Man Band Neutrophils # Lymphocytes # (Manual) Abs React Lymphs (Man) Monocytes # (Manual) Eosinophils # (Manual) Basophils # (Manual) Metamyelocytes # Myelocytes # Promyelocytes # Blast Cells # WBC Morphology Hypersegmented Neuts Hyposegmented Neuts Hypogranular Neuts Smudge Cells Toxic Granulation Toxic Vacuolation Dohle Bodies Pelger-Huet Anomaly Abel Rods Platelet Estimate Clumped Platelets Plt Clumps, EDTA Large Platelets Giant Platelets Platelet Satelliting Plt Morphology Comment RBC Morphology Dimorphic RBCs Polychromasia Hypochromasia Poikilocytosis Anisocytosis Microcytosis Macrocytosis Spherocytes Pappenheimer Bodies Sickle Cells Target Cells Tear Drop Cells Ovalocytes Helmet Cells [place] Bodies Uvalda Rings Bernabe Cells Bite Cells Crenated Cell Elliptocytes Acanthocytes (Spur) Rouleaux Hemoglobin C Crystals Schistocytes Malaria parasites Edd Bodies Hem Pathologist Commnt PT INR APTT D-Dimer ABG pH ABG pCO2 ABG pO2 ABG HCO3 ABG O2 Saturation ABG O2 Content ABG Base Excess ABG Hemoglobin ABG Carboxyhemoglobin ABG Methemoglobin Oxyhemoglobin FiO2 Sodium 140 Potassium 3.2 L Chloride 99.8 Carbon Dioxide 26 Anion Gap 17 BUN 26 H Creatinine 1.2 Estimated GFR > 60 BUN/Creatinine Ratio 22 Glucose 109 H Calcium 8.5 Magnesium Total Bilirubin 0.30 AST 32 ALT 21 Alkaline Phosphatase 77 Ammonia 49.0 Total Creatine Kinase Troponin T 0.028 Total Protein 6.7 Albumin 3.7 L Albumin/Globulin Ratio 1.2 TSH 1.030 Urine Color Urine Turbidity Urine pH Ur Specific [place] Urine Protein Urine Glucose (UA) Urine Ketones Urine Blood Urine Nitrite Urine Bilirubin Urine Urobilinogen Ur Leukocyte Esterase Urine WBC (Auto) Urine RBC (Auto) U Epithel Cells (Auto) Urine Mucus Salicylates Urine Opiates Screen Urine Methadone Screen Acetaminophen Ur Barbiturates Screen Valproic Acid Ur Phencyclidine Scrn Ur Amphetamines Screen U Benzodiazepines Scrn Urine Cocaine Screen U Marijuana (THC) Screen Drugs of Abuse Note Plasma/Serum Alcohol 05/20/19 05/20/19 05/20/19 00:53 00:53 00:53 WBC RBC Hgb Hct MCV MCH MCHC RDW Plt Count Lymph % (Auto) [place] % (Auto) Eos % (Auto) Baso % (Auto) Lymph # [place] # Eos # Baso # Add Manual Diff Total Counted Seg Neutrophils % Seg Neuts % (Manual) Band Neutrophils % Lymphocytes % (Manual) Reactive Lymphs % (Man) Monocytes % (Manual) Eosinophils % (Manual) Basophils % (Manual) Metamyelocytes % Myelocytes % Promyelocytes % Blast Cells % Nucleated RBC % Seg Neutrophils # Seg Neutrophils # Man Band Neutrophils # Lymphocytes # (Manual) Abs React Lymphs (Man) Monocytes # (Manual) Eosinophils # (Manual) Basophils # (Manual) Metamyelocytes # Myelocytes # Promyelocytes # Blast Cells # WBC Morphology Hypersegmented Neuts Hyposegmented Neuts Hypogranular Neuts Smudge Cells Toxic Granulation Toxic Vacuolation Dohle Bodies Pelger-Huet Anomaly Abel Rods Platelet Estimate Clumped Platelets Plt Clumps, EDTA Large Platelets Giant Platelets Platelet Satelliting Plt Morphology Comment RBC Morphology Dimorphic RBCs Polychromasia Hypochromasia Poikilocytosis Anisocytosis Microcytosis Macrocytosis Spherocytes Pappenheimer Bodies Sickle Cells Target Cells Tear Drop Cells Ovalocytes Helmet Cells [place] Bodies Uvalda Rings [place] Cells Bite Cells Crenated Cell Elliptocytes Acanthocytes (Spur) Rouleaux Hemoglobin C Crystals Schistocytes Malaria parasites Edd Bodies Hem Pathologist Commnt PT INR APTT D-Dimer ABG pH ABG pCO2 ABG pO2 ABG HCO3 ABG O2 Saturation ABG O2 Content ABG Base Excess ABG Hemoglobin ABG Carboxyhemoglobin ABG Methemoglobin Oxyhemoglobin FiO2 Sodium Potassium Chloride Carbon Dioxide Anion Gap BUN Creatinine Estimated GFR BUN/Creatinine Ratio Glucose Calcium Magnesium 1.90 Total Bilirubin AST ALT Alkaline Phosphatase Ammonia Total Creatine Kinase 131 Troponin T Total Protein Albumin Albumin/Globulin Ratio TSH Urine Color Urine Turbidity Urine pH Ur Specific [place] Urine Protein Urine Glucose (UA) Urine Ketones Urine Blood Urine Nitrite Urine Bilirubin Urine Urobilinogen Ur Leukocyte Esterase Urine WBC (Auto) Urine RBC (Auto) U Epithel Cells (Auto) Urine Mucus Salicylates < 0.3 L Urine Opiates Screen Urine Methadone Screen Acetaminophen Ur Barbiturates Screen Valproic Acid 53.8 Ur Phencyclidine Scrn Ur Amphetamines Screen U Benzodiazepines Scrn Urine Cocaine Screen U Marijuana (THC) Screen Drugs of Abuse Note Plasma/Serum Alcohol < 0.01 05/20/19 05/20/19 05/20/19 00:53 03:05 03:05 WBC RBC Hgb Hct MCV MCH MCHC RDW Plt Count Lymph % (Auto) [place] % (Auto) Eos % (Auto) Baso % (Auto) Lymph # [place] # Eos # Baso # Add Manual Diff Total Counted Seg Neutrophils % Seg Neuts % (Manual) Band Neutrophils % Lymphocytes % (Manual) Reactive Lymphs % (Man) Monocytes % (Manual) Eosinophils % (Manual) Basophils % (Manual) Metamyelocytes % Myelocytes % Promyelocytes % Blast Cells % Nucleated RBC % Seg Neutrophils # Seg Neutrophils # Man Band Neutrophils # Lymphocytes # (Manual) Abs React Lymphs (Man) Monocytes # (Manual) Eosinophils # (Manual) Basophils # (Manual) Metamyelocytes # Myelocytes # Promyelocytes # Blast Cells # WBC Morphology Hypersegmented Neuts Hyposegmented Neuts Hypogranular Neuts Smudge Cells Toxic Granulation Toxic Vacuolation Dohle Bodies Pelger-Huet Anomaly Abel Rods Platelet Estimate Clumped Platelets Plt Clumps, EDTA Large Platelets Giant Platelets Platelet Satelliting Plt Morphology Comment RBC Morphology Dimorphic RBCs Polychromasia Hypochromasia Poikilocytosis Anisocytosis Microcytosis Macrocytosis Spherocytes Pappenheimer Bodies Sickle Cells Target Cells Tear Drop Cells Ovalocytes Helmet Cells [place] Bodies [place] Rings Bernabe Cells Bite Cells Crenated Cell Elliptocytes Acanthocytes (Spur) Rouleaux Hemoglobin C Crystals Schistocytes Malaria parasites Edd Bodies Hem Pathologist Commnt PT INR APTT D-Dimer ABG pH ABG pCO2 ABG pO2 ABG HCO3 ABG O2 Saturation ABG O2 Content ABG Base Excess ABG Hemoglobin ABG Carboxyhemoglobin ABG Methemoglobin Oxyhemoglobin FiO2 Sodium Potassium Chloride Carbon Dioxide Anion Gap BUN Creatinine Estimated GFR BUN/Creatinine Ratio Glucose Calcium Magnesium Total Bilirubin AST ALT Alkaline Phosphatase Ammonia Total Creatine Kinase Troponin T Total Protein Albumin Albumin/Globulin Ratio TSH Urine Color Yellow Urine Turbidity Clear Urine pH 5.0 Ur Specific [place] 1.034 H Urine Protein 30 mg/dl Urine Glucose (UA) Neg Urine Ketones Neg Urine Blood Neg Urine Nitrite Neg Urine Bilirubin Neg Urine Urobilinogen < 2.0 Ur Leukocyte Esterase Neg Urine WBC (Auto) 1.0 Urine RBC (Auto) 2.0 U Epithel Cells (Auto) < 1.0 Urine Mucus Few Salicylates Urine Opiates Screen Presumptive negative Urine Methadone Screen Presumptive negative Acetaminophen < 5.0 L Ur Barbiturates Screen Presumptive negative Valproic Acid Ur Phencyclidine Scrn Presumptive negative Ur Amphetamines Screen Presumptive negative U Benzodiazepines Scrn Presumptive negative Urine Cocaine Screen Presumptive negative U Marijuana (THC) Screen Presumptive negative Drugs of Abuse Note Disclamer Plasma/Serum Alcohol 05/20/19 05/20/19 08:20 08:20 WBC 8.0 RBC 4.02 Hgb 12.2 Hct 37.4 MCV 93 MCH 30 MCHC 33 RDW 14.2 Plt Count 280 Lymph % (Auto) [place] % (Auto) [place] Eos % (Auto) Baso % (Auto) Lymph # [place] # Eos # Baso # Add Manual Diff Complete Total Counted 100 Seg Neutrophils % Seg Neuts % (Manual) 66.0 Band Neutrophils % 0 Lymphocytes % (Manual) 22.0 Reactive Lymphs % (Man) 0 Monocytes % (Manual) 11.0 H Eosinophils % (Manual) 0 Basophils % (Manual) 1.0 Metamyelocytes % 0 Myelocytes % 0 Promyelocytes % 0 Blast Cells % 0 Nucleated RBC % Not Reportable Seg Neutrophils # Seg Neutrophils # Man 5.3 Band Neutrophils # 0.0 Lymphocytes # (Manual) 1.8 Abs React Lymphs (Man) 0.0 Monocytes # (Manual) 0.9 H Eosinophils # (Manual) 0.0 Basophils # (Manual) 0.1 Metamyelocytes # 0.0 Myelocytes # 0.0 Promyelocytes # 0.0 Blast Cells # 0.0 WBC Morphology Not Reportable Hypersegmented Neuts Not Reportable Hyposegmented Neuts Not Reportable Hypogranular Neuts Not Reportable Smudge Cells Not Reportable Toxic Granulation Not Reportable Toxic Vacuolation Not Reportable Dohle Bodies Not Reportable Pelger-Huet Anomaly Not Reportable Abel Rods Not Reportable Platelet Estimate Consistent w auto Clumped Platelets Not Reportable Plt Clumps, EDTA Not Reportable Large Platelets Not Reportable Giant Platelets Not Reportable Platelet Satelliting Not Reportable Plt Morphology Comment Not Reportable RBC Morphology Normal Dimorphic RBCs Not Reportable Polychromasia Not Reportable Hypochromasia Not Reportable Poikilocytosis Not Reportable Anisocytosis Not Reportable Microcytosis Not Reportable Macrocytosis Not Reportable Spherocytes Not Reportable Pappenheimer Bodies Not Reportable Sickle Cells Not Reportable Target Cells Not Reportable Tear Drop Cells Not Reportable Ovalocytes Not Reportable Helmet Cells Not Reportable [place] Bodies Not Reportable Uvalda Rings Not Reportable [place] Cells Not Reportable Bite Cells Not Reportable Crenated Cell Not Reportable Elliptocytes Not Reportable Acanthocytes (Spur) Not Reportable Rouleaux Not Reportable Hemoglobin C Crystals Not Reportable Schistocytes Not Reportable Malaria parasites Not Reportable Edd Bodies Not Reportable Hem Pathologist Commnt No PT INR APTT D-Dimer ABG pH ABG pCO2 ABG pO2 ABG HCO3 ABG O2 Saturation ABG O2 Content ABG Base Excess ABG Hemoglobin ABG Carboxyhemoglobin ABG Methemoglobin Oxyhemoglobin FiO2 Sodium 141 Potassium 3.9 D Chloride 101.4 Carbon Dioxide 23 Anion Gap 21 BUN 24 H Creatinine 1.2 Estimated GFR > 60 BUN/Creatinine Ratio 20 Glucose 90 Calcium 8.1 L Magnesium Total Bilirubin AST ALT Alkaline Phosphatase Ammonia Total Creatine Kinase Troponin T Total Protein Albumin Albumin/Globulin Ratio TSH Urine Color Urine Turbidity Urine pH Ur Specific [place] Urine Protein Urine Glucose (UA) Urine Ketones Urine Blood Urine Nitrite Urine Bilirubin Urine Urobilinogen Ur Leukocyte Esterase Urine WBC (Auto) Urine RBC (Auto) U Epithel Cells (Auto) Urine Mucus Salicylates Urine Opiates Screen Urine Methadone Screen Acetaminophen Ur Barbiturates Screen Valproic Acid Ur Phencyclidine Scrn Ur Amphetamines Screen U Benzodiazepines Scrn Urine Cocaine Screen U Marijuana (THC) Screen Drugs of Abuse Note Plasma/Serum Alcohol Assessment and Plan 1.coffee-ground emesis 2.N/V-improved 3.constipation 4.H/o hemorrhoids (s/p banding 11/2018) -afebrile -WBC, H/H, plt, INR, and LFTs WNL -monitor H/H and transfuse as needed -no active signs of bleeding this am; HD stable -last colonoscopy by Dr. Wilson 11/29/2018 showed cecal polyp, diverticulosis in sigmoid, non-bleeding internal hemorrhoids, and erythema in the recto-sigmoid with bx negative -etiology-likely M-W tear vs esophagitis vs other -clinically, patient reports feeling better with N/V improved. Denies abd pain. BM x 1 this am with light brown stool. -no plan for EGD at this time, consider based on progress -okay for full liquid diet-advance as tolerated -continue PPI BID -start on daily bowel regimen for constipation with Miralax -limit narcotics for this my exacerbate symptoms -continue supportive care -will follow
[2019-05-20] MEDS: METOCLOPRAMIDE 10 MG/2 ML INJ IV SCH ×2 (11:00→12:31)
[2019-05-20] MEDS: POLYETHYLENE GLYCOL 3350 17 GM POWDER PO SCH (11:01)
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
[2019-05-20] MEDS ORDERED: PANTOPRAZOLE 40 MG INJ IV SCH (13:00)
--- NOTE | 2019-05-20 13:00 | Discharge Summary ---
Providers - Providers Date of Admission: 05/20/19 06:52 Attending physician: ANTONI CANTU MD 05/20/19 02:51 Consult to Physician [CONS] Urgent Comment: Consulting Provider: JOSE BAUMAN Physician Instructions: Reason For Exam: lakia lei + 05/20/19 07:51 Consult to Mental Health [CONS] Routine Reason For Exam: psychosis Primary care physician: YUSRA VOSS MD Hospitalization Reason for admission: Abdominal distention Condition: Fair Hospital course: 54M with PMH fo HTN, Dyslipidemia, CVA in 2018, Bipolar disorder who was sent here from [facility] for N/V and some coffee ground emesis as per [facility] where the pt resides. When the pt arrived in the ED, he was mostly silent and denied any pain anywhere. He was noted to be disorganized. He was sent for a head CT which was negative. CT chest also was negative for PE. UDS was negative but of note, pt is on Xanax. He later became lucid enough to speak. In my conversations, I asked him about his abdominal distention and asked when his last BM was. He says his last BM was 05/16/19. He says " I have been constipated all of my life" and thats why I stopped eating". Pt was sent from [facility] to [facility] for Mood Stabilization on 05/14/19. He was noted to be agitated and wont follow command, and appeared anxious. HE is under chapter 1014 at [facility]. Thus far in the ED, No N/V has occured and pt's Guaiac was negative as performed by the ED physician. GI evaluated the patient no plan for endoscopy at this time as documented below. Patient has not had any other bowel movements with blood the only bowel movement this morning was light brown stool. He is clinically stable we did discuss about discontinuation of all narcotics due to ileus. He verbalized understanding. Patient is medically clear for discharge back to [facility] I have discussed with case management. Psych team here evaluated the patient but did not recommend inpatient admission at our facility. 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 Recommendation -afebrile -WBC, H/H, plt, INR, and LFTs WNL -monitor H/H and transfuse as needed -no active signs of bleeding this am; HD stable -last colonoscopy by Dr. Wilson 11/29/2018 showed cecal polyp, diverticulosis in sigmoid, non-bleeding internal hemorrhoids, and erythema in the recto-sigmoid with bx negative -etiology-likely M-W tear vs esophagitis vs other -clinically, patient reports feeling better with N/V improved. Denies abd pain. BM x 1 this am with light brown stool. -no plan for EGD at this time, consider based on progress -okay for full liquid diet-advance as tolerated -continue PPI BID -start on daily bowel regimen for constipation with Miralax -limit narcotics for this my exacerbate symptoms -continue supportive care Assessment Acute enteritis Diffuse mild ileus Hemorrhoidal bleed status post banding 11/2018 Gastroenteritis with nausea vomiting now improved Constipation Bipolar disorder Hypokalemia Tobacco dependence-15 minutes counseling on tobacco cessation patient verbalized understanding Dehydration Disposition: [id number] PSY HOSP/PSY UNIT Time spent for discharge: 35-minute Core Measure Documentation - Palliative Care Palliative Care/ Comfort Measures: Not Applicable - Core Measures Any of the following diagnoses?: none Exam - Physical Exam Narrative exam: VITAL SIGNS: Reviewed. GENERAL: The patient appears normally developed, Vital signs as documented. HEAD: No signs of head trauma. EYES: Pupils are equal. Extraocular motions intact. EARS: Hearing grossly intact. MOUTH: Oropharynx is normal. NECK: No adenopathy, no JVD. CHEST: Chest with clear breath sounds bilaterally. No wheezes, rales, or rhonchi. CARDIAC: Regular rate and rhythm. S1 and S2, without murmurs, gallops, or rubs. VASCULAR: Trace bilateral lower extremity edema. Peripheral pulses normal and equal in all extremities. ABDOMEN: Soft, non tender and non distended. No rebound or guarding, and no masses palpated. Bowel Sounds normal. MUSCULOSKELETAL: Good range of motion of all major joints. Extremities without clubbing, cyanosis. Trace bilateral lower extremity edema. NEUROLOGIC EXAM: Alert and oriented x 3 No focal sensory or strength deficits. Speech normal. Follows commands. PSYCHIATRIC: Mood normal. SKIN: detial exam as documented in skin assessment - Constitutional Vitals: Temp Pulse Resp BP Pulse Ox 97.6 F 87 17 139/88 98 05/20/19 07:15 05/20/19 07:15 05/20/19 07:15 05/20/19 07:15 05/20/19 07:15 Plan Activity: advance as tolerated, fall precautions Diet: low fat, low salt Special Instructions: record daily weights, record daily BP diary, smoking cessation Follow up with: YUSRA VOSS MD [Primary Care Provider] - 3-5 Days NICOLE VICTORIA MD [Staff Physician] - 7 Days Forms: Accompanied Note Prescriptions: polyethylene glycoL 3350 [Miralax 3350] 17 gm PO BID #30 powd.pack Pantoprazole [Protonix TAB] 40 mg PO BID #60 tablet
[2019-05-20 14:34] VITALS: BP 106/81
[2019-05-20] MEDS ORDERED: BENZTROPINE 0.5 MG TAB PO SCH (22:00)
[2019-05-21] MEDS ORDERED: PANTOPRAZOLE 40 MG TAB PO SCH (10:00)
== END 2019-05-20 19:15 ==
LOC: ED 00:08 → 3A 06:52 → INTOOBSV 06:52
PROVIDERS: ADMIT Hospitalist; ATTEND Internal Medicine
DX: K52.9 Noninfective gastroenteritis and colitis, unspecified (principal); R11.2 Nausea with vomiting, unspecified; R41.82 Altered mental status, unspecified; I10 Essential (primary) hypertension; K59.00 Constipation, unspecified; E86.0 Dehydration; E87.6 Hypokalemia; K64.9 Unspecified hemorrhoids; E11.9 Type 2 diabetes mellitus without complications; E78.5 Hyperlipidemia, unspecified; F31.9 Bipolar disorder, unspecified; F90.9 Attention-deficit hyperactivity disorder, unspecified type; F17.200 Nicotine dependence, unspecified, uncomplicated; Z71.6 Tobacco abuse counseling; Z86.73 Personal history of transient ischemic attack (TIA), and cerebral infarction without residual deficits; Z79.899 Other long term (current) drug therapy; Z88.8 Allergy status to other drugs, medicaments and biological substances
CPT/HCPCS: 36415; 70450; 71045; 71275; 74018; 80048; 80053; 80164; 80307; 81001; 82140; 82271; 82550; 82803; 83735; 84443; 84484; 85007; 85025; 85379; 85610; 85730; 93005; 93010; 96361; 96365; 96366; 96375; 96376; 99285; C9113; G0378; J2765; J3480; J7030; Q9967; 80320; G0480